=== PATIENT | male | born 1980 | race Two or more races ===

== ENCOUNTER → 2022-01-29 | Emergency (ER) | payer OTHER | END | disposition left against medical advice (07) | LOC: ER 19:35 | DX: T15.91XA Foreign body on external eye, part unspecified, right eye, initial encounter (principal); Z53.21 Procedure and treatment not carried out due to patient leaving prior to being seen by health care provider; X58.XXXA Exposure to other specified factors, initial encounter; Y93.89 Activity, other specified; Y92.89 Other specified places as the place of occurrence of the external cause; Y99.8 Other external cause status ==

== ENCOUNTER 2022-07-23 17:53 | Emergency (ER) | payer OTHER ==
[~2022-07-23] VITALS: Ht 170.2 cm; Wt 68.0 kg
[2022-07-23 23:45] VITALS: BP 129/67
[2022-07-23] MEDS ORDERED: CEPH-510 PO (23:46)
[2022-07-23] MEDS ORDERED: IBUP800T27 PO (23:46)
[2022-07-24] MEDS ORDERED: ceFAZolin 1GM/50ML 100 ML IV ONE
[2022-07-24] MEDS ORDERED: BACITRACIN TOP OINT 1 UD PKG TOP ONE (00:30)
== END 2022-07-24 04:48 | disposition home or self-care (01) ==
LOC: ER 17:53
DX: S62.602A Fracture of unspecified phalanx of right middle finger, initial encounter for closed fracture (principal); S61.212A Laceration without foreign body of right middle finger without damage to nail, initial encounter; Z79.1 Long term (current) use of non-steroidal anti-inflammatories (NSAID); Z79.899 Other long term (current) drug therapy; W20.8XXA Other cause of strike by thrown, projected or falling object, initial encounter; Y93.89 Activity, other specified; Y92.89 Other specified places as the place of occurrence of the external cause; Y99.8 Other external cause status
CPT/HCPCS: 12001; 73140; 96365; 99284; J0690; J2001

== ENCOUNTER 2022-07-30 10:01 | Emergency (ER) | payer OTHER ==
[~2022-07-30] VITALS: Ht 170.2 cm; Wt 67.2 kg
[~2022-07-30 10:01] MED LIST: CEPH-510 PO; IBUP800T27 PO
[2022-07-30] MEDS ORDERED: cefTRIAXone SOD 1,000 MG VL IM ONE (11:15)
[2022-07-30] MEDS ORDERED: LIDOCAINE 1% HCL (LOCAL ANESTH.) INJ 20ML MDV ONE (12:18)
[2022-07-30 13:41] VITALS: BP 127/85
== END 2022-07-30 13:40 | disposition home or self-care (01) ==
LOC: ER 10:01
DX: M79.644 Pain in right finger(s) (principal); Z48.00 Encounter for change or removal of nonsurgical wound dressing
CPT/HCPCS: 96372; 99283; J0696; J2001

== ENCOUNTER 2022-08-07 10:06 | Emergency (ER) | payer OTHER ==
[~2022-08-07] VITALS: Ht 170.2 cm; Wt 66.6 kg
[2022-08-07 11:00] VITALS: BP 116/71
== END 2022-08-07 11:15 | disposition home or self-care (01) ==
LOC: ER 10:06
DX: S61.212D Laceration without foreign body of right middle finger without damage to nail, subsequent encounter (principal); W19.XXXD Unspecified fall, subsequent encounter